=== PATIENT | male | born 1950 | race Asian ===

== ENCOUNTER 2022-04-09 11:30 | Emergency (ER) | payer OTHER ==
[~2022-04-09] VITALS: Ht 172.7 cm; Wt 108.9 kg
[2022-04-09 11:39] VITALS: BP 156/69; TEMP 98.3
== END 2022-04-09 12:10 | disposition home or self-care (01) ==
LOC: ED 11:30
DX: B36.0 Pityriasis versicolor (principal)
CPT/HCPCS: 96372; 99283; J1200; J2930